=== PATIENT | male | born 1980 | race Caucasian/White ===

== ENCOUNTER → 2017-08-06 07:42 | Outpatient (CLI) | payer OTHER, SELFPAY ==
--- NOTE | 2017-08-06 07:49 | US_ITS ---
US abdomen limited History:Right upper quadrant pain and nausea Ordering Physician:Rafael Sinclair MD Patient Age: 36 years Comparison:06/03/2011 Findings: Pancreas:Unremarkable. No obvious mass or abnormal fluid collection. No ductal dilatation Liver:No focal liver lesions demonstrated. Homogeneous echogenicity. No intrahepatic biliary ductal dilatation evident Right Kidney:Unremarkable. The right kidney measures 10.9 x 4.3 x 4.8 cm and shows a good cortical medullary junction.. No hydronephrosis Gallbladder:No gallstones, gallbladder wall thickening, pericholecystic fluid, or biliary dilatation. Impression:Negative gallbladder/right upper quadrant
== END ==
PROVIDERS: PCP Family Medicine; Visit Provider Family Medicine
DX: R10.11 Right upper quadrant pain (principal)
CPT/HCPCS: 76705

== ENCOUNTER 2020-10-06 12:35 | Emergency (ER) | payer OTHER, SELFPAY ==
[2020-10-06 12:36] VITALS: BP 175/83; PULSE 75; RESP 18; TEMP 36.7; O2SAT 97; BMI 25.8
--- NOTE | 2020-10-06 13:13 | PC.NURSE ---
Patito from poison control recommended to do a stain and eye exam and to ensure patient irrigated his eyes. Patient irrigated his eyes prior to arrival
--- NOTE | 2020-10-06 13:46 | HMH.EDEYEP ---
ED Disposition Clinical Impression: Chemical conjunctivitis of both eyes Disposition: Home, Self-Care Condition on Discharge: Good Instructions: DI for Chemical Eye Burn Referrals: Hipolito Mejia MD [Primary Care Provider] - [facility] [Other] - Critical Care Critical Care Time: No Attestation: On 10/06/20, the high probability of a clinically significant, sudden or life threatening deterioration of the following system(s) required my full and direct attention, intervention and personal management. The time I documented below is in addition to time spent performing reported procedures but includes the following listed in this critical care notation. Medical Decision Making - Medical Records Medical records reviewed: Yes: I reviewed the patient's medical records. - Zac Inquiry Pt receiving controlled substance: No Vital Signs: 10/06/20 12:36 Temperature 98.1 F Temperature Source Oral Pulse Rate [Right] 75 Respiratory Rate 18 Blood Pressure [Right Arm] 175/83 H Blood Pressure Mean [Right Arm] 113 02 Sat by Pulse Oximetry 97 Oxygen Delivery Method Room Air - Reevaluation(s) Time: 13:51 Reevaluation #1: On reevaluation, patient tolerated procedure well. No evidence of foreign body. Repeat visual examination did not show any deficit. pH normal. Patient to follow-up with PCP and Adamaris Hermosillo. Patient was given strict return precautions. Verbalized understanding. Medical Decision Narrative: 39-year-old male presented to the emergency department after getting a chemical in his eyes. Patient states that it was a aqua hawk solution. I did contact poison control. The substance that is active in solution is aluminum chlorohydrate. Apparently this is a nontoxic substance per poison control. They did recommend thorough eye examination and irrigation for any foreign body. This was performed at bedside. Eye Problem HPI - General Chief complaint: Eye Problems Stated complaint: wc @ 1130 chemicals in both eyes Time Seen by Provider: 10/06/20 12:40 Mode of Arrival: Family Vehicle Limitations: No Limitations Description of Symptoms (Recalled from ER Triage Doc. by RN): Patient reports accidental chemical exposure at work with the chemical called aqua hawk 607. Patient reports this occurred at work. Upon assessment, patient denies foreign body sensation and patients' eyes are clear. Patient reports he normally wears contacts and does not have them on or his glassess. Patient reports mild visual changes - History of Present Illness HPI Narrative: This is a 39-year-old male presented to the emergency department after splashing some chemicals in his eyes. Patient was working on a machine when one of the houses popped off. He got some of the liquid material in the aqua Hawk into his eyes. The patient was not wearing glasses or contacts at this time. He did immediately irrigate his eyes. Patient states that he thoroughly irrigated his eyes for about 15 minutes. Patient does not endorsing any change in vision at this time. He states that his eyes are slightly itchy. He is not have any pain with eye movement. He did not get any of the other material on his skin or in his mouth. No ingestion. He denies any headache. No focal weakness. Denies any chest pain or shortness of breath. Abdominal pain or vomiting. No diarrhea. - Related Data Home Medications Medication Instructions Recorded Confirmed Omeprazole [Omeprazole 40mg 40 mg PO DAILY 06/26/17 08/05/17 Capsule] Allergies Allergy/AdvReac Type Severity Reaction Status Date / Time No Known Allergies Allergy Verified 10/03/17 11:08 [facility] History - Hepatitis A Screen Drug use history?: No High risk sexual behaviors?: No History of sexually transmitted infection?: No Currently employed?: No Childcare worker?: No Do you have indoor plumbing?: Yes Do you have electricity?: Yes Attestation statement:: This
[2020-10-06 14:06] VITALS: BP 141/85; PULSE 65; RESP 18; TEMP 36.8; O2SAT 97
== END 2020-10-06 14:09 | disposition home or self-care (01) ==
PROVIDERS: Emergency Provider Emergency Medicine; PCP Family Medicine
DX: H10.213 Acute toxic conjunctivitis, bilateral (principal); Z57.5 Occupational exposure to toxic agents in other industries
CPT/HCPCS: 99281

== ENCOUNTER → 2020-12-05 08:43 | Outpatient (POV) | payer OTHER, SELFPAY ==
[2020-12-05 08:59] VITALS: BP 146/87; PULSE 69; RESP 18; O2SAT 99; BMI 25.8
--- NOTE | 2020-12-05 09:16 | HMH.PMCON ---
Assessment and Plan (1) Neck pain Status: Chronic Category: Medical Code(s): M54.2 - Cervicalgia (2) Cervical radiculopathy Status: Chronic Category: Medical Code(s): M54.12 - Radiculopathy, cervical region - Assessment and plan all Dx Assessment and Plan for all problems:: Patient presents with neck pain with radiation into bilateral anterior chest area as well as bilateral shoulders and with frequent headaches. He does see Dr. Morley with neurology in [facility] for a history of headaches and questionable cyst that was noted per an MRI. The patient is continuing with home stretching and has tried anti-inflammatories with minimal relief. He will be referred to physical therapy. He does have a family member that does work in physical therapy and has been helping him with physical therapy at home. He has gotten minimal relief. Given that he has made attempts at physical therapy as well as home stretching and anti-inflammatories, we will proceed with an MRI of his cervical spine. We will refer him to physical therapy for possible dry needling and treatment for pain into his neck and bilateral shoulders. We will refer the patient back to Dr. Morley per patient request. We will see the patient back after his MRI for further evaluation and discussion. Patient has been instructed to contact the clinic with any concerns before the next appointment. Dr. Abdul has reviewed this note and agrees with this plan of care. This note was dictated using voice recognition software and make contain errors or omissions. HPI - Data of Consult Patient: new to practice Consult date: 12/05/20 Requesting Physician: Patito Stone APRN - Consult Narrative History of present illness: Mr. Beckwith is a 40 year old male who presents today for consultation for neck pain and frequent headaches. Patient reports to have had 6 to 8 months of pain in his low neck area with radiation into bilateral shoulders and into his head. The pain does radiate behind both ears as well as his tentorial area. He reports to have had an MRI of his brain in 2017 and was noted to have a cyst that has been regularly monitored per Dr. Morley with neurology [facility]. He denies nausea or vomiting with headaches. He denies any visual changes or any dizziness. Patient is not having any type of light sensitivity. He is reporting to be having intermittent numbness into his left thumb. He does have bilateral anterior chest soreness with reports of cracking and popping sensations in the anterior chest area and the neck area with movement . He has tried anti-inflammatories with no significant relief. He has tried muscle relaxants which have only caused him to be very groggy. As result he rarely takes the medication. The medicine did not relieve any of his symptoms. He has not followed up with neurology for some time. He has not had any imaging of his cervical spine. He is consulted for physical therapy,though home stretching has not been beneficial for his pain. CC: Patito Stone APRN [facility] History I have reviewed the patient's past medical history: Yes Medical History: Reports:: Hiatal Hernia Denies:: Cancer, Coronary Artery Disease, Diabetes Mellitus Type 1, Diabetes Mellitus Type 2, Hyperlipidemia, MRSA, Valvular Heart Disease *Have you ever received a pneumonia vaccine?: No *Have you received a flu vaccine this season?: No Laterality Cases: Bilateral: Tonsillectomy Amputation: No Fractures: No - *Social History Smoking Status: Never smoker Alcohol Intake: current Alcohol Intake Frequency:: holidays/special occasions only *Occupational Status:: employed *Travel in the last 8 weeks: None Family Hx:: Non-contributory Review of Systems - Review of Systems Review of Systems General: No recent weight changes, no fever, no sleep disturbances Respiratory: No cough, no shortness of air, no recurring pulmonary infections Cardiovascular/emilia
== END ==
PROVIDERS: Visit Provider Clinical Nurse Specialist Family Health
DX: M54.2 Cervicalgia (principal); M54.12 Radiculopathy, cervical region
CPT/HCPCS: 99202; G0463

== ENCOUNTER → 2020-12-10 10:46 | Outpatient (CLI) | payer OTHER, SELFPAY ==
--- NOTE | 2020-12-10 10:48 | MR_ITS ---
PROCEDURE: MR CERVICAL SPINE WO CON CLINICAL INDICATION: NECK PAIN Headache, left-sided neck pain, tingling in thumb of left hand for years. COMPARISON: No exams were available for comparison TECHNIQUE: Standard multiplanar multiecho sequences are performed without contrast. There is no significant cervical spondylosis. The cervical spinal canal is widely patent. There is an increased number of cervical lymph nodes which are however not enlarged. FINDINGS: There is no significant cervical spondylosis. The cervical spinal canal is widely patent. There are an increased number of cervical lymph nodes bilaterally which are however not enlarged. IMPRESSION: 1. No significant cervical spondylosis. 2. Numerous nonenlarged cervical lymph nodes. Dictated by: Mary Graves MD 12/10/2020 13:47 Mary Graves MD in [place] 12/10/2020 13:47
== END ==
PROVIDERS: PCP Family Medicine; Visit Provider Clinical Nurse Specialist Family Health
DX: M54.2 Cervicalgia (principal)
CPT/HCPCS: 72141; 76376

== ENCOUNTER 2020-12-17 16:30 | Outpatient (RCR) | payer OTHER, SELFPAY ==
--- NOTE | 2020-12-11 16:38 | HMH.PTOPEV ---
PT Outpatient Evaluation Rehab PT Outpatient Evaluation Start: 12/11/20 16:25 Freq: Status: Active Protocol: Document 12/11/20 16:25 ADRIANNA (Rec: 12/11/20 16:37 BRIONNAAUGUSTA [id number]) Electronically Signed By Phill Weeks, PT 12/11/20 16:25 Outpatient Therapy Subjective History Subjective History Patient is a 40 year old male presenting to outpatient PT with reports of chronic cervical spine pain and cervicogenic headaches. Pain is specific to the L upper trapezius and sub-occipital mm . Patient reports intermittent numbness to L C6 dermatome. Most recent imaging was negative. 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 Chief Complaint Pain,Spasms,Stiff,Clicks Symptom Type Ache,Numbness,Tingling Symptoms Relieved By Rest/Positioning,Prescription Meds Symptoms Aggravated By Physical Activity Prior Functional Limitations None Current Functional Limitations Reaching,Lifting,Housework, Driving,Sleeping Symptom Description Intermittent Level of pain today (0-10) 2 Pain scale - at its best (0-10) 0 Pain scale - at its worst (0-10) 6 Cervical Eval Palpation Cervical Muscles L Cervical Paraspinal,L Suboccipital,L Upper Trapezius Cervical/Thoracic Palpation Findings Tenderness,Spasm,Trigger Point Posture Head/C-Spine Posture Sitting Position Neutral Position Head/C-Spine Posture Standing Position Neutral Position Flexibility Deficits Upper Trapezius Muscle Length (L) Moderate Tightness Levaetor Scapulae Muscle Length (L) Moderate Tightness Pectoralis Minor Muscle Length (L) Moderate Tightness Passive Joint Mobility Cervical PIVM WNL: R OA L OA R AA L AA R C2/3 L C2/3 R C3/4 L C3/4 R C4/5 L C4/5 R C5/6 L C5/6 R C6/7 L C6/7 R C7/T1 L C7/T1 AROM
== END 2020-12-17 16:35 | disposition home or self-care (01) ==
LOC: PT 16:30
PROVIDERS: PCP Family Medicine; Visit Provider Clinical Nurse Specialist Family Health
DX: M54.2 Cervicalgia (principal)
CPT/HCPCS: 97014; 97110; 97140; 97163; G0283

== ENCOUNTER → 2020-12-26 15:12 | Outpatient (POV) | payer OTHER, SELFPAY ==
[2020-12-26 15:22] VITALS: BP 150/88; PULSE 76; RESP 18; O2SAT 97; BMI 26.5
--- NOTE | 2020-12-26 15:33 | HMH.PAINSOAP ---
[facility] Pain Management SOAP Note Subjective:: Patient is a 40-year-old white male who presents today for follow-up after an MRI. The patient is having 6 to 8 months of pain in his low neck area with radiation into bilateral shoulders and into his head. Pain does radiate behind both ears as well as into his temp oral area. He did have an MRI of his brain in 2017 with a notable cyst that has been regularly monitored by Dr. Morley with neurology at [facility] in [facility]. He denies any vision changes, nausea, vomiting with his headaches. He denies any vertigo or changes in balance. He is having numbness intermittently into his left thumb. He does have bilateral anterior chest soreness with reports of cracking and popping sensations in the anterior chest area and neck area with movement. He has tried anti-inflammatories with minimal relief. He did go to physical therapy and did undergo dry needling as well as a TENS unit. He is unsure if this gave him any relief. He rates his pain a 0 out of 10 today. He says he has not noticed much of a headache over the last few days. Review of Systems General: No recent weight changes, no fever, no sleep disturbances Respiratory: No cough, no shortness of air, no recurring pulmonary infections Cardiovascular/peripheral vascular: No chest pain, no palpitations, no edema, no shortness of breath Gastrointestinal: No new onset incontinence, normal bowel movements reported Genitourinary: No new onset incontinence Musculoskeletal: Neck pain, headaches, bilateral shoulder pain, bilateral anterior chest pain intermittent Psychiatric: [Normal mood/affect] Neurological: [Denies weakness in extremities], [denies balance issues] Objective:: Physical exam General: Alert and oriented x3, no acute distress, pleasant and cooperative Lungs: Respirations even and unlabored, symmetrical chest expansion Eyes: PERRL Musculoskeletal: Flexion and extension of cervical [spine] somewhat guarded secondary to pain, normal gait noted Neurological: Speech clear, no gross sensory deficit Assessment:: Neck pain, bilateral shoulder pain, headaches Plan:: Patient's MRI was unremarkable for any pathology cervical spine. He was noted per the MRI report to have numerous cervical lymph nodes which were not enlarged. Patient is having neck pain with headaches and bilateral shoulder and anterior chest pain and soreness. He does have a history of a cyst on his brain that was monitored with Dr. Sweeney. Patient would like to stay local and see neurology within [facility]. We will refer the patient to Dr. Pinto. We will request the MRI from Dr. Sweeney's office/[facility] from [address] Pinto. The patient will follow up with Dr. Pinto and call us after his appointment with Dr. Pinto for further work-up if needed. Patient has been instructed to contact the clinic with any concerns before the next appointment. Dr. Abdul has reviewed this note and agrees with this plan of care. This note was dictated using voice recognition software and make contain errors or omissions. [facility] History I have reviewed the patient's past medical history: Yes Medical History: Reports:: Hiatal Hernia Denies:: Cancer, Coronary Artery Disease, Diabetes Mellitus Type 1, Diabetes Mellitus Type 2, Hyperlipidemia, MRSA, Valvular Heart Disease *Have you ever received a pneumonia vaccine?: No *Have you received a flu vaccine this season?: No Laterality Cases: Bilateral: Tonsillectomy Amputation: No Fractures: No - *Social History Smoking Status: Never smoker Alcohol Intake: current Alcohol Intake Frequency:: holidays/special occasions only *Occupational Status:: employed *Travel in the last 8 weeks: None Family Hx:: Non-contributory
== END ==
PROVIDERS: Visit Provider Clinical Nurse Specialist Family Health
DX: M54.2 Cervicalgia (principal); M25.511 Pain in right shoulder; M25.512 Pain in left shoulder; R51.9 Headache, unspecified
CPT/HCPCS: 99212; G0463

== ENCOUNTER → 2021-01-31 09:07 | Outpatient (CLI) | payer OTHER, SELFPAY ==
[2021-01-31 10:33] LABS: Alanine Aminotransferase 29 U/L (12-78); Albumin Level 4.4 g/dl (3.5-5.0); Albumin/Globulin Ratio 1.8 (1.1-1.8); Alkaline Phosphatase 45 U/L (38-126); Anion Gap 11.4 mEq/L (5-15); Aspartate Amino Transferase 23 U/L (17-59); Bilirubin,Total 0.4 mg/dl (0.2-1.3); Blood Urea Nitrogen 14 mg/dl (9-20); Calcium 9.4 mg/dl (8.4-10.2); Carbon Dioxide 31 mmol/L (22.0-30.0); Chloride 102 mmol/L (98-107); Estimated Glomerular Filt Rate 94 ml/min (>60); GFR (African American) 114 ML/MIN (>60); Globulin 2.5 g/dL (1.3-3.2); Glucose 103 mg/dl (74-100); Potassium 4.4 mmoL/L (3.5-5.1); Sodium 140 mmol/L (136-145); Total Protein,Serum 6.9 g/dl (6.3-8.2)
[2021-01-31 11:39] LABS: Vitamin B12 341 pg/mL (239-931)
[2021-02-06 17:31] LABS: Vitamin B1 100.6 nmol/L (66.5-200.0)
== END ==
PROVIDERS: Visit Provider Specialist
DX: G43.709 Chronic migraine without aura, not intractable, without status migrainosus (principal)
CPT/HCPCS: 36415; 80053; 82607; 82746; 84425

== ENCOUNTER → 2021-02-06 08:02 | Outpatient (CLI) | payer OTHER, SELFPAY ==
--- NOTE | 2021-02-06 08:02 | MR_ITS ---
PROCEDURE: MR HEAD/BRAIN WO/W CON CLINICAL INDICATION: Pineal cyst COMPARISON: CT HDWO CT HEAD W/O CONTRAST from 05/09/2016 MR MR CERVICAL SPINE WO CON from 12/10/2020 TECHNIQUE: Routine multiplanar multi echo sequences are performed without and with gadolinium enhancement. FINDINGS: No midline shift, mass effect, intracranial hemorrhage, or hydrocephalus is evident. The cerebellopontine angles, cerebellum, and brainstem have an unremarkable appearance. There is a 5 mm pineal cyst. The cyst wall is slightly thickened and there is enhancement of the cyst wall posteriorly. There are no previous studies available which demonstrate this finding. Please correlate with any outside studies. No evidence of acute infarction. The pituitary, optic chiasm, corpus callosum, and craniocervical junction are unremarkable. Other than the pineal enhancement, no other abnormal areas of enhancement. There is a 1.7 cm retention cyst in the right maxillary sinus anteriorly. No sinus air-fluid levels are evident. No mastoid effusion. IMPRESSION: 1. 5 mm pineal cyst. There is some minimal thickening of the cyst wall and enhancement of the wall posteriorly. Recommend six-month follow-up to confirm short term stability unless there are old outside exams that would confirm stability. 2. Otherwise unremarkable MRI of the brain without and with contrast Dictated by: Pasha Grant MD 02/07/2021 09:20 Pasha Grant MD in [place] 02/07/2021 09:20
== END ==
PROVIDERS: PCP Family Medicine; Visit Provider Specialist
DX: G43.709 Chronic migraine without aura, not intractable, without status migrainosus (principal)
CPT/HCPCS: 70553; A9576

== ENCOUNTER → 2021-04-10 16:37 | Outpatient (CLI) | payer OTHER, SELFPAY ==
--- NOTE | 2021-04-10 16:41 | XR_ITS ---
PROCEDURE INFORMATION: Exam: XR Chest Exam date and time: 04/10/2021 4:41 PM Age: 40 years old Clinical indication: Chest wall pain; Additional info: Costochondritis TECHNIQUE: Imaging protocol: XR of the chest. Views: 2 views. COMPARISON: CR CXR2V XR chest 2V 08/05/2017 6:02 PM FINDINGS: Lungs: Unremarkable. No consolidation. Pleural spaces: Unremarkable. No pleural effusion. No pneumothorax. Heart/Mediastinum: Unremarkable. No cardiomegaly. Bones/joints: Unremarkable. IMPRESSION: No acute findings.
== END ==
PROVIDERS: PCP Family Medicine; Visit Provider Family Medicine
DX: R07.89 Other chest pain (principal)
CPT/HCPCS: 71046

== ENCOUNTER 2021-06-28 01:26 | Emergency (ER) | payer OTHER, SELFPAY ==
[2021-06-28] VITALS (10 sets, daily range): BP systolic 142–223; BP diastolic 93–143; PULSE 92–121; RESP 10–18; TEMP 36.8–37.1; O2SAT 93–99; BMI 25.8
--- NOTE | 2021-06-28 01:32 | ECG_ITS ---
APPROVED REPORT Exam: Resting ECG HR:116 bpm ECG Measurements Heart Rate 116 AXES NH 143 P 61 QRSd 93 QRS 50 QT 316 T 69 QTc 385 Conclusion SINUS TACHYCARDIA o/w NORMAL RHYTHM ECG UNCONFIRMED REPORT Electronically signed by : Berry Espinal MD 06/28/2021 07:51:37
--- NOTE | 2021-06-28 01:38 | XR_ITS ---
PROCEDURE INFORMATION: Exam: XR Chest Exam date and time: 06/28/2021 1:39 AM Age: 40 years old Clinical indication: Other: Increased hr; Additional info: Dysrthmia TECHNIQUE: Imaging protocol: XR of the chest. Views: 2 views. COMPARISON: CR XR CHEST 2V 04/10/2021 4:44 PM FINDINGS: Lungs: Lungs are clear. Pleural spaces: No pleural effusion. No pneumothorax. Heart/Mediastinum: Cardiomediastinal silouhette is within normal limits. Bones/joints: No acute osseous abnormality. Soft tissues: Unremarkable. IMPRESSION: No acute findings.
[2021-06-28 01:47] LABS: Basophils # 0.1 K/mm3 (0-0.2); Basophils % 0.8 % (0.1-2.0); Eosinophils # 0.1 K/mm3 (0.0-0.4); Eosinophils % 0.6 % (0.1-12.0); Hematocrit 42.5 % (42.0-52.0); Hemoglobin 14.5 g/dL (14.1-18.0); Lymphocytes # 2.2 K/mm3 (0.7-4.5); Lymphocytes % 16.9 % (10-50); Mean Corpuscular HGB Conc 34.2 g/dL (31.8-35.4); Mean Corpuscular Hemoglobin 30.5 pg (27.0-31.2); Mean Corpuscular Volume 89.1 fl (80-94); Mean Platelet Volume 7.7 fl (7.4-10.4); Monocytes # 0.8 K/mm3 (0.1-1.0); Monocytes % 6.5 % (1.7-9.3); Neutrophils # 9.6 K/mm3 (1.8-7.8); Neutrophils % 75.2 % (37.0-80.0); Platelet Count 277 K/mm3 (142-424); Red Blood Count 4.77 M/mm3 (4.60-6.20); Red Cell Distribution Width 13.5 % (11.5-17.5); White Blood Count 12.8 K/mm3 (4.8-10.8)
[2021-06-28 01:54] LABS: Chloride 104 mmol/L (98-107); Potassium 3.6 mmoL/L (3.5-5.1); Sodium 137 mmol/L (136-145)
[2021-06-28 01:56] LABS: Blood Urea Nitrogen 17 mg/dl (9-20); Creatinine Clearance Estimated 115 mL/min (50-200); Estimated Glomerular Filt Rate 83 ml/min (>60); GFR (African American) 101 ML/MIN (>60)
[2021-06-28 01:57] LABS: Alanine Aminotransferase 28 U/L (12-78); Albumin Level 4.5 g/dl (3.5-5.0); Alkaline Phosphatase 55 U/L (38-126); Anion Gap 12.6 mEq/L (5-15); Aspartate Amino Transferase 23 U/L (17-59); Bilirubin,Indirect 0.5 mg/dL (0.0-0.9); Bilirubin,Total 0.5 mg/dl (0.2-1.3); Bilirubin,Unconjugated 0.5 mg/dL (0.0-1.1); Carbon Dioxide 24 mmol/L (22.0-30.0); Glucose 122 mg/dl (74-100); Total Protein,Serum 7.6 g/dl (6.3-8.2)
[2021-06-28 02:11] LABS: Troponin I < 0.01 ng/ml (0.00-0.034)
--- NOTE | 2021-06-28 03:04 | HMH.EDGENADL ---
ED Disposition Clinical Impression: Sinus tachycardia Disposition: Home, Self-Care Condition on Discharge: Good Additional Instructions: Please follow-up with your primary care physician for sinus tachycardia seen in the emergency department and please remain hydrated. Please return to the emergency department with any new or worsening symptoms including chest pain, fainting, shortness of breath or any other new or concerning symptoms. Referrals: Rafael Sinclair MD [Primary Care Provider] - - Critical Care Critical Care Time: No Attestation: On 06/28/21, the high probability of a clinically significant, sudden or life threatening deterioration of the following system(s) required my full and direct attention, intervention and personal management. The time I documented below is in addition to time spent performing reported procedures but includes the following listed in this critical care notation. Medical Decision Making - Zac Inquiry Pt receiving controlled substance: No Vital Signs: 06/28/21 01:27 06/28/21 02:01 06/28/21 02:08 Temperature 98.8 F Temperature Source Oral Pulse Rate 102 H 111 H Pulse Rate [Left Radial] 121 H Respiratory Rate 16 16 Blood Pressure 179/110 H 196/122 H Blood Pressure [Right Arm] 142/98 H Blood Pressure Mean 128 134 Blood Pressure Mean [Right Arm] 112 Blood Pressure Source [Right Arm] Automatic Cuff 02 Sat by Pulse Oximetry 98 99 Oxygen Delivery Method Room Air 06/28/21 02:22 06/28/21 02:25 06/28/21 02:27 Temperature Temperature Source Pulse Rate 99 H 102 H 92 H Pulse Rate [Left Radial] Respiratory Rate 14 10 L Blood Pressure 206/120 H 223/143 H 158/97 H Blood Pressure [Right Arm] Blood Pressure Mean 128 169 126 Blood Pressure Mean [Right Arm] Blood Pressure Source [Right Arm] 02 Sat by Pulse Oximetry 99 98 Oxygen Delivery Method 06/28/21 02:28 06/28/21 02:30 06/28/21 03:00 Temperature Temperature Source Pulse Rate 102 H 102 H 99 H Pulse Rate [Left Radial] Respiratory Rate 13 13 17 Blood Pressure 156/93 H 160/103 H 149/97 H Blood Pressure [Right Arm] Blood Pressure Mean 114 115 109 Blood Pressure Mean [Right Arm] Blood Pressure Source [Right Arm] 02 Sat by Pulse Oximetry 93 L 98 98 Oxygen Delivery Method - Lab Data Lab Results 06/28/21 01:40: WBC 12.8 H, RBC 4.77, Hgb 14.5, Hct 42.5, MCV 89.1, MCH 30.5, MCHC 34.2, RDW 13.5, Plt Count 277, MPV 7.7, Neut % (Auto) 75.2, Lymph % (Auto) 16.9, Navarro % (Auto) 6.5, Eos % (Auto) 0.6, Baso % (Auto) 0.8, Neut # (Auto) 9.6 H, Lymph # (Auto) 2.2, Navarro # (Auto) 0.8, Eos # (Auto) 0.1, Baso # (Auto) 0.1 06/28/21 01:40: Sodium 137, Potassium 3.6, Chloride 104, Carbon Dioxide 24, Anion Gap 12.6, BUN 17, Creatinine 1.00, Estimated Creat Clear 115, Estimated GFR 83, Est GFR ( Amer) 101, Glucose 122 H, Calcium 10.0, Total Bilirubin 0.5, Direct Bilirubin 0.0, Conjugated Bilirubin 0.0, Indirect Bilirubin 0.5, Unconjugated Bilirubin 0.5, AST 23, ALT 28, Alkaline Phosphatase 55, Troponin I < 0.01, Total Protein 7.6, Albumin 4.5 06/28/21 03:50: Troponin I < 0.01 Result diagrams: 06/28/21 01:40 06/28/21 01:40 Orders (Tests/Meds): ED MEDICATIONS Generic Name Dose Route Start Last Admin Trade Name Freq PRN Reason Stop Dose Admin Sodium Chloride 1,000 mls @ 999 mls/hr 06/28/21 01:45 06/28/21 01:42 Sod Chlor 0.9% 1000ml Bag IV 06/28/21 02:45 999 mls/hr .Q1H1M ARISTIDES Administration Sodium Chloride 1,000 mls @ 999 mls/hr 06/28/21 03:30 06/28/21 03:24 Sod Chlor 0.9% 1000ml Bag IV 06/28/21 04:30 999 mls/hr .Q1H1M ARISTIDES Administration Discontinued Medications Generic Name Dose Route Start Last Admin Trade Name Freq PRN Reason Stop Dose Admin Aspirin 324 mg 06/28/21 01:40 06/28/21 01:42 Aspirin 81mg Chewable Tablet PO 06/28/21 01:41 324 mg ONCE ONE Administration ORDERS Category Date Time Status Troponin I Q3H
[2021-06-28 04:23] LABS: Troponin I < 0.01 ng/ml (0.00-0.034)
== END 2021-06-28 04:42 | disposition home or self-care (01) ==
PROVIDERS: Emergency Provider Student in an Organized Health Care Education/Training Program; PCP Family Medicine
DX: I47.1 Supraventricular tachycardia (principal); K21.9 Gastro-esophageal reflux disease without esophagitis; G43.709 Chronic migraine without aura, not intractable, without status migrainosus; Z79.899 Other long term (current) drug therapy
CPT/HCPCS: 71046; 80048; 80076; 84484; 85025; 93005; 96360; 96361; 99284

== ENCOUNTER → 2021-10-21 15:46 | Outpatient (CLI) | payer OTHER, SELFPAY | LOC: RT 15:47 | PROVIDERS: PCP Family Medicine; Visit Provider Family Medicine | DX: R00.2 Palpitations (principal) | CPT/HCPCS: 93225; 93226 ==

== ENCOUNTER → 2021-10-30 15:08 | Outpatient (CLI) | payer OTHER, SELFPAY ==
--- NOTE | 2021-10-30 | CA_ITS ---
APPROVED REPORT EXAM: Comprehensive 2D, Doppler, and color-flow Echocardiogram [facility] Supervisor: Bea Neff CRT Ht: 5 ft 10 in Wt: 185lbs BSA: 2.02 BP: 138/86 mmHg Indications: Chest Pain, Palpitations 2D Dimensions LVOT 1.98 cm (M/F) 1.5-2.5 LA Volume 41.70 mL LA Volume Index 20.60 mL/m2 (M/F) 16-34 M-Mode Dimensions RVDd 2.15 cm (0.9-2.6) LA Diam 3.98 cm (1.9-4.0) LVDd 4.90 cm (3.5-5.7) Ao Diam 3.83 cm (2.0-3.7) LVDs 2.83 cm (3.5-5.7) IVSd 1.29 cm (0.6-1.1) PWd 0.82 cm (0.6-1.1) EF (Teich) 73.10% FS 42.20% EDV (Teich) 112.80 mL TAPSE 1.96 (<1.7) ESV (Teich) 30.30 mL LV Diastology MED E' 8.90 (< 7 cm/sec) MED A' 11.30 cm/s LAT E' 12.30 (<10 cm/sec) LAT A' 10.20 cm/s Aortic Valve AO Peak GR. 8.00 mmHg Pulmonary Valve PV Peak Velocity 114.00 (50-150 cm/s) Tricuspid Valve TR P. Velocity 178.00 cm/s RAP Estimate 10.00 mmHg RVSP 22.70 mmHg Left Ventricle Left atrium is normal size, left ventricle is normal size, there is no concentric left ventricular hypertrophy, estimated ejection fraction 55% with no regional wall motion abnormality, diastolic parameters are within normal range. Right Ventricle Right atrium and right ventricle are normal size and contractility. Aortic Valve Aortic valve is grossly normal there is no aortic stenosis aortic insufficiency. Mitral Valve Mitral valve is grossly normal, there is no significant mitral regurgitation. Tricuspid Valve Tricuspid valve grossly normal, there is no significant tricuspid regurgitation. Pulmonic Valve Pulmonic valve is poorly visualized. Great Vessels Aortic root is normal size. Inferior vena cava is poorly visualized. Pericardium No significant pericardial effusion noted. Conclusion 1. Normal left ventricular size preserved left ventricular systolic function, estimated ejection fraction 55% with no regional wall motion abnormality, diastolic parameters are within normal range. 2. No significant pericardial effusion noted. 3. Inferior vena cava is poorly visualized. Electronically signed by : Emile Deutsch MD 10/31/2021 08:44:02
== END ==
LOC: RT 15:09
PROVIDERS: PCP Family Medicine; Visit Provider Family Medicine
DX: R07.9 Chest pain, unspecified (principal)
CPT/HCPCS: 93306

== ENCOUNTER → 2024-04-04 15:46 | Outpatient (CLI) | payer BC, SELFPAY | LOC: SL 15:47 | PROVIDERS: PCP Family Medicine; Visit Provider Specialist | DX: G47.33 Obstructive sleep apnea (adult) (pediatric) (principal); G47.34 Idiopathic sleep related nonobstructive alveolar hypoventilation | CPT/HCPCS: 94762 ==